=== PATIENT | female | born 1980 | race Caucasian/White ===

== ENCOUNTER 2018-11-11 14:31 | Emergency (ER) | payer SELFPAY ==
[2018-11-11 14:32] VITALS: BP 156/112; PULSE 85; RESP 18; TEMP 37; O2SAT 98; BMI 28.0
--- NOTE | 2018-11-11 15:03 | EKG12_ITS ---
Test Reason : CHEST OTHER Blood Pressure : / mmHG Vent. Rate : 056 BPM Atrial Rate : 056 BPM P-R Int : 146 ms QRS Dur : 080 ms QT Int : 416 ms P-R-T Axes : 070 051 021 degrees QTc Int : 401 ms Sinus bradycardia Otherwise normal ECG Confirmed by CARSON MINOR ([id number]), newspaper or periodical editor YESICA HUNTER ([id number]) on 11/15/2018 4:51:17 PM Referred By: IVORY Confirmed By:CARSON MINOR
--- NOTE | 2018-11-11 15:03 | RAD_ITS ---
STUDY: X-RAY CHEST REASON FOR EXAM: Female, 38 years old. Chest pain. TECHNIQUE: Single AP portable view of the chest. COMPARISON: Comparison is made with prior study dated March 19, 2009. FINDINGS: The lungs are clear and expanded. There is no demonstrated pleural abnormality. Normal size heart. Normal mediastinum and chavez. Normal visualized pulmonary arteries. Normal visualized aortic arch and descending thoracic aorta. Normal visualized thoracic spine. Normal visualized ribs, clavicles, and shoulders. There is no demonstrated abnormality of the visualized soft tissue structures of the upper abdomen. RAD/Chest 1 View (Portable) IMPRESSION: Normal x-ray examination of the chest. Electronically Signed: Abe Brown, at 15:27 EDT , Service support ,
--- NOTE | 2018-11-11 15:40 | ED.VISSUMM ---
- ER Visit Summary Date of Service: 11/11/18 Chief Complaint: Sore throat History of Present Illness: The patient is a 38 F with a sore throat for just over 2 weeks. The patient noted spots in her throat. She also reports chest pain throughout her anterior chest and radiating down into her arms. No prior history of this. Associated cough. Nothing seems to make it better or worse. She is a smoker. Denies any medications including hormones. Denies any travel, recent surgeries, or immobilization. Denies any history of heart disease or aortic disease. Physical Examination: Afebrile and vital signs unremarkable except for a blood pressure of 156/112. Alert and oriented. No acute distress. HEENT exam unremarkable except for bilateral tonsillar exudates. Uvula midline. Airway intact. No lymphadenopathy. Good range of motion of her neck. No meningeal signs. Skin appears normal. No rash elsewhere. Heart regular. Lungs clear. Abdomen soft. Test Results: Rapid strep negative. EKG showed sinus rhythm at a rate of 56. No sign of acute ischemia or infarction pattern. Chest x-ray normal. Emergency Department Course and Treatment: Patient likely has a pharyngitis. She was treated with Decadron. I suspect her other symptoms may be related to a viral illness. Her EKG and chest x-ray were reassuring. She is low risk for heart disease. She has PERC negative. Nothing to suggest aortic disease. Plan will be outpatient follow-up. Anti-inflammatories. Return for any new or worsening issues. Treatment Plan: As above Disposition: Discharge Impression: 1. Pharyngitis 2. Chest wall pain This note was generated with [employer] dictation software. It may contain incorrect words, spelling, and punctuation that were not noted in review of the chart prior to signing ED Disposition - Plan for ED Patient: Referrals: Care Physician,No Primary [Primary Care Provider] -
--- NOTE | 2018-11-11 15:44 | ED.DCSUM_ITS ---
- ER Visit Summary Date of Service: 11/11/18 Chief Complaint: Sore throat History of Present Illness: The patient is a 38 F with a sore throat for just over 2 weeks. The patient noted spots in her throat. She also reports chest pain throughout her anterior chest and radiating down into her arms. No prior history of this. Associated cough. Nothing seems to make it better or worse. She is a smoker. Denies any medications including hormones. Denies any travel, recent surgeries, or immobilization. Denies any history of heart disease or aortic disease. Physical Examination: Afebrile and vital signs unremarkable except for a blood pressure of 156/112. Alert and oriented. No acute distress. HEENT exam unremarkable except for bilateral tonsillar exudates. Uvula midline. Airway intact. No lymphadenopathy. Good range of motion of her neck. No meningeal signs. Skin appears normal. No rash elsewhere. Heart regular. Lungs clear. Abdomen soft. Test Results: Rapid strep negative. EKG showed sinus rhythm at a rate of 56. No sign of acute ischemia or infarction pattern. Chest x-ray normal. Emergency Department Course and Treatment: Patient likely has a pharyngitis. She was treated with Decadron. I suspect her other symptoms may be related to a viral illness. Her EKG and chest x-ray were reassuring. She is low risk for heart disease. She has PERC negative. Nothing to suggest aortic disease. Plan will be outpatient follow- up. Anti-inflammatories. Return for any new or worsening issues. Treatment Plan: As above Disposition: Discharge Impression: 1. Pharyngitis 2. Chest wall pain This note was generated with [employer] dictation software. It may contain incorrect words, spelling, and punctuation that were not noted in review of the chart prior to signing ED Disposition - Plan for ED Patient: Referrals: Care Physician,No Primary [Primary Care Provider] -
--- NOTE | 2018-11-11 15:44 | ED.DEP ---
ED Disposition - Plan for ED Patient: Instructions: ED Pharyngitis Viral Referrals: Twila Naidu [NON-STAFF] -
[2018-11-11 16:07] VITALS: BP 141/86; RESP 18
== END 2018-11-11 16:08 | disposition home or self-care (01) ==
PROVIDERS: Emergency Provider Emergency Medicine
DX: J02.9 Acute pharyngitis, unspecified (principal); R07.89 Other chest pain; R05 Cough; F17.200 Nicotine dependence, unspecified, uncomplicated
CPT/HCPCS: 71045; 87880; 93005; 99283

== ENCOUNTER 2023-04-17 14:07 | Emergency (ER) | payer SELFPAY ==
[2023-04-17 14:07] VITALS: BP 149/100; PULSE 104; RESP 18; TEMP 35.6; O2SAT 99; BMI 22.3
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
[2023-04-17] MEDS: LORazepam 1 MG Tablet PO (14:41)
== END 2023-04-17 15:35 | disposition home or self-care (01) ==
PROVIDERS: Emergency Provider Emergency Medicine; Visit Provider Emergency Medicine
DX: F41.9 Anxiety disorder, unspecified (principal); F17.210 Nicotine dependence, cigarettes, uncomplicated
CPT/HCPCS: 99283

== ENCOUNTER 2023-04-19 07:10 | Emergency (ER) | payer SELFPAY ==
[2023-04-19 07:11] VITALS: BP 137/110; PULSE 103; RESP 16; TEMP 36.6; O2SAT 100; BMI 23.3
--- NOTE | 2023-04-19 07:49 | EX.ED.DYSGE1 ---
HPI History of Present Illness Chief Complaint: Anxiety Narrative Narrative: Patient is a 42-year-old female who is presenting to the ER today with chief complaint of nausea and vomiting yesterday and today. Patient was here in the ER on Thursday, please refer to progress note. Patient was given a prescription of Ativan 0.5 mg. Patient took Ativan 6 o'clock this morning. Anxiety has not completely improved. Patient has no headache. No chest pain or shortness of breath. No other acute complaints. Patient is able to drink and no vomiting with drinking, only with eating yesterday. Patient is not suicidal homicidal. Patient has been able to sleep. Patient is not manic or having any signs of major depression at this time. [facility] Medical History (Updated 04/19/23 @ 07:[address] Meng Black DO) Marijuana smoker Home Medications lorazepam 0.5 mg tablet 0.5 mg PO TID PRN anxiety #12 tabs 04/17/23 [Rx Last Taken Unknown] hydroxyzine pamoate 25 mg capsule 50 mg (2 x 25 mg) PO TID PRN PRN Anxiety #10 CAPSULES 04/19/23 [Rx Last Taken Unknown] ondansetron 4 mg disintegrating tablet 4 mg PO Q4H PRN PRN Nausea #10 tabs 04/19/23 [Rx Last Taken Unknown] Allergy/AdvReac Type Severity Reaction Status Date / Time diphenhydramine HCl AdvReac Other Verified 04/19/23 07:11 [From Benadryl] Social History (Updated 04/17/23 @ 14:24 by Joceline Heath) household members: none housing: house pets and animals: Yes Smoking Status: Current every day smoker tobacco type: e-cigarettes ROS ROS ED ROS Narrative REVIEW OF SYSTEMS: Unless otherwise stated in this report the patient's positive and negative responses for review of systems for constitutional, eyes, ENT, cardiovascular, respiratory, gastrointestinal, neurological, , musculoskeletal, and integument systems and related systems to the presenting problem are either stated in the history of present illness or were not pertinent or were negative for the symptoms and/or complaints related to the presenting medical problem. EXAM Physical Exam Narrative Exam Narrative: Vital signs reviewed and patient is not hypoxic. General: The patient appears well and in no apparent distress. Patient is resting comfortably on cart. Not toxic, lethargic, or listless. Skin: Warm, dry, no pallor noted. There is no rash noted. Head: Normocephalic, atraumatic Eye: Normal conjunctiva, no drainage, EOMI. PERRL. Ears, Nose, Mouth, and Throat: oral mucosa is moist. Nares patent. Cardiovascular: Regular Rate and Rhythm, no murmurs, gallops, or rubs Respiratory: Patient is in no distress, no accessory muscle use, lungs are clear to auscultation, no wheezing, rales or rhonchi Back: non-tender, no CVA tenderness bilaterally to percussion. NO CTLS midline or paraspinal tenderness to palpation. GI: Soft, no tenderness to palpation, no masses appreciated. No rebound, guarding, or rigidity noted. No flank pain bilateral, no peritoneal signs, no rash, no peritoneal signs. No flank pain bilateral, no midepigastric tenderness to palpation. Patient has a benign abdomen. musculoskeletal: The patient has full range of motion of all extremities and joints with no difficulty. Patient has no motor, no sensory deficits. Neurological: A&O x4, normal speech, no focal neurological deficits. Psychiatric: Cooperative; no suicidal homicidal ideations. Patient is not manic or signs of major depression Const Vital Signs: 04/19/23 07:11 04/19/23 08:20 Temperature 98 F Temperature Source Temporal Pulse Rate 103 H Respiratory Rate 16 Blood Pressure 137/110 H 134/86 H Blood Pressure Mean 119 102 Pulse Ox 100 Oxygen Delivery Method Room Air MDM MDM MDM Narrative Medical decision making narrative: Patient was just here on Thursday, was seen evaluated by physician clinical services assistant and ER physician. Patient was given 1 Ativan in the ER on Thursday, sent home with prescription for Ativan. Yesterday and today patient had nausea and vomiting, she cannot eat but she is able to drink without any difficulty. Patient placed anxiety is not in control. Patient is not suicidal homicidal. Patient has no previous diagnosis of anxiety, stress or depression. Patient is going to follow-up with outpatient mental health facility and call tomorrow for an appointment. Patient still has her gallbladder and appendix. Patient has no other sick contacts. No recent traveling. Patient has no other sick contacts. No urinary or bowel complaints. Patient states that she is not , she has not had a period in over 2 years. Patient was given Zofran in the ER. Patient will be sent home with prescription of the hydroxyzine and Zofran. Patient is comfortable with this plan. Patient has a benign abdominal exam. Discharge Plan Triage Chief Complaint: Anxiety ED Provider: Meng Black Dx/Rx/DC Orders Clinical Impression: Anxiety, Nausea and vomiting Instructions: Anxiety Disorders Tx, ED Vomiting (Adult) Prescriptions: New ondansetron [ondansetron] 4 mg tablet,disintegrating 4 mg PO Q4H PRN PRN (Reason: Nausea) Qty: 10 0RF hydroxyzine pamoate [hydroxyzine pamoate] 25 mg capsule 50 mg PO TID PRN PRN (Reason: Anxiety) Qty: 10 0RF No Action lorazepam 0.5 mg tablet 0.5 mg PO TID PRN (Reason: anxiety) Qty: 12 0RF Primary Care Provider: Care Physician,No Primary Referrals: Care Physician,No Primary [Primary Care Provider] - Activity Restrictions/Additional Instructions: Use nausea medicine as needed. Call the follow-up appointment tomorrow with PCP and also mental health. Use hydroxyzine as needed. Disposition Disposition: Home, Self Care Discharge Date/Time: 04/19/23 08:34
[2023-04-19] MEDS: Ondansetron ODT 4 MG Tablet PO (07:55)
[2023-04-19 08:20] VITALS: BP 134/86
== END 2023-04-19 08:34 | disposition home or self-care (01) ==
PROVIDERS: Emergency Provider Emergency Medicine; Visit Provider Emergency Medicine
DX: F41.9 Anxiety disorder, unspecified (principal); R11.2 Nausea with vomiting, unspecified; F17.290 Nicotine dependence, other tobacco product, uncomplicated; Z79.899 Other long term (current) drug therapy
CPT/HCPCS: 99283